=== PATIENT | female | born 1995 | race Caucasian/White ===

== ENCOUNTER 2021-09-23 19:01 | Emergency (ER) | payer MEDICAID ==
[~2021-09-23] VITALS: Ht 144.8 cm; Wt 74.0 kg
[2021-09-23 19:13] VITALS: BP 110/70
--- NOTE | 2021-09-23 19:20 | NUR ---
BIB FRIEND C/O HEMATURIA X 1 MONTH, C/O LOWER BACK PAIN, LOWER ABD PAIN X 1 WEEK. PMH: RIGHT KIDNEY STONE
--- NOTE | 2021-09-23 19:45 | NUR ---
Patient ambulated to bed 8 and change to a gown.
[2021-09-23 20:24] LABS: BILIRUBIN,URINE NEGATIVE (NEGATIVE); BLOOD, URINE 3+ (NEGATIVE); COLOR,URINE YELLOW (YELLOW); LEUKOCYTE ESTERASE ,URINE 1+ (NEGATIVE); NITRITE, URINE NEGATIVE (NEGATIVE); PH,URINE 6.5 (5.0-9.0); UGLUCOSE NEGATIVE (NEGATIVE)
[2021-09-23 20:27] LABS: APPEARANCE,URINE HAZY (CLEAR)
[2021-09-23 20:33] LABS: RBC,URINE >100 /HPF (0-5); WBC,URINE 20-60 /HPF (0-5)
--- NOTE | 2021-09-23 21:41 | NUR ---
25 Y/O F BIB SELF FOR RT FLANK/BACK PAIN 12/20 X 3 WEEKS . PT STATES BLOOD IN URINE AND PAIN DURING URINATION. PT STATES PAIN IS SHARP AND STABBING. PT STATES SHE HAD STENTS PUT IN ABOUT 2 WEEKS AGO FOR KIDNEY STONES. PT WAS SUPPOSED TO GET SURGERY FOR STONE REMOVAL BUT THEY ARE INFECTED AND PT ON ANTIBIOTIC. PT ALSO STATES SHE IS AND DOES NOT WANT THE BABY. DENIES N/V/D; SKIN IS PINK/WARM/DRY; AAOX4 WITH EVEN AND STEADY GAIT; LUNGS CLEAR BL; HR EVEN AND REGULAR; PT DENIES ANY FEVER, CP, SOB, OR COUGH AT THIS TIME;; VSS; PATIENT POSITIONED FOR COMFORT; HOB ELEVATED; BEDRAILS UP X2; BED DOWN. ER MADE AWARE OF PT STATUS. PMH: NONE ALLERGIES: NONE RX: NONE
--- NOTE | 2021-09-23 21:48 | NUR ---
LAB AT BEDSIDE
[2021-09-23] MEDS ORDERED: PHENAZOPYRIDINE 100 MG TAB PO ONE (21:55)
[2021-09-23] MEDS ORDERED: cefTRIAXone 1,000 MG in LIDOCAINE MPF 1% 2.1 ML IM ONE (21:55)
[2021-09-23] MEDS ORDERED: ACETAMINOPHEN EXTRA STRENGTH 500 MG TAB PO ONE (21:55)
[2021-09-23] MEDS ORDERED: ACETAMINOPHEN EXTRA STRENGTH 500 MG TAB ONE (21:56)
[2021-09-23] MEDS ORDERED: LIDOCAINE MPF 1% 5 ML ONE (22:24)
[2021-09-23] MEDS ORDERED: cefTRIAXone 1,000 MG VIAL ONE (22:24)
[2021-09-23] MEDS ORDERED: NITR100C7 PO (23:04)
[2021-09-24] VITALS: BP 115/75
--- NOTE | 2021-09-24 | NUR ---
Patient discharged with v/s stable. Written and verbal after care instructions given and explained. Patient alert, oriented and verbalized understanding of instructions. Ambulatory with steady gait. All questions addressed prior to discharge. ID band removed. Patient advised to follow up with PMD. Rx of macrobid given. Opportunity to ask questions provided and answered.
--- NOTE | 2021-09-25 18:00 | NUR ---
LATE ENTRY. RECEIVED POSITIVE URINE CULTURE. DISCREPANCY LOG PRESENTED TO DR ROJAS. DR ROJAS WANTED PT TO CONFIRM THAT THEY WILL FOLLOW UP WITH OBGYN. SPOKE WITH PT DIRECTLY, SHE STATED THAT SHE HAS TERMINATED HER . DR ROJAS MADE AWARE, NO ADDITIONAL TREATMENT NEEDED. PT REQUESTED RX OF MACROBID SENT TO HER NEW PHARMACY, RX CALLED IN. FORM IN [place]
== END 2021-09-24 | disposition home or self-care (01) ==
LOC: MED 19:01
DX: O23.41 Unspecified infection of urinary tract in pregnancy, first trimester (principal); Z79.899 Other long term (current) drug therapy; Z87.442 Personal history of urinary calculi
CPT/HCPCS: 36415; 76770; 76817; 81001; 81025; 84702; 86900; 86901; 87086; 96372; 99285; J0696; J2001; Q0092; 87491